=== PATIENT | female | born 1955 | race Caucasian/White ===

== ENCOUNTER 2023-05-20 15:03 | Emergency (ER) | payer MEDICARE, OTHER, SELFPAY ==
[2023-05-20] VITALS (15 sets, daily range): BP systolic 138–171; BP diastolic 72–98; PULSE 55–71; RESP 16–22; TEMP 36.6; O2SAT 95–99; BMI 23.6
--- NOTE | 2023-05-20 15:22 | ECG_ITS ---
[facility] Test Date: 2023-05-20 Pat Name: ANGEL PAGE Department: Room: - Gender: Female Sheet Manager: : 1955 Requested By: Order Number: [id number] Reading MD: GERDA BLACKMAN Measurements Intervals [place] Rate: 59 P: 58 MA: 152 QRS: 39 QRSD: 84 T: 49 QT: 400 QTc: 399 Interpretive Statements 1100 Sinus bradycardia 2420 RSR (QR) in lead V1/V2, consistent with right ventricular conduction delay 9130 borderline ECG Compared to ECG 03/31/2019 00:52:33 No significant changes Electronically Signed On 05-20-2023 23:29:12 EST by GERDA BLACKMAN
--- NOTE | 2023-05-20 15:23 | ED.CHESTPAI1 ---
HPI - Chest Pain General Chief Complaint: Chest Pain Stated Complaint: Chest Pain Time Seen by Provider: 05/20/23 15:16 Source: patient Mode of arrival: walk-in Limitations: no limitations History of Present Illness HPI narrative: Patient is a 67-year-old female who presents to the emergency department for chest pain over the last 2 months. She states in the last week it has become more constant and intense. She saw her doctor at the beginning of April and states she was started on blood pressure medications. She does not take any medications for cholesterol, diabetes, blood thinners. She has no history of cardiac disease that she is aware of. No previous stents. She states she had a stress test 30 years ago for palpitations which was normal. She states her PCP ordered an EKG in the office which was normal. She states she has an appointment tomorrow but figured she should come to the ER today. She has had no fevers, chills, cough, congestion, hemoptysis, leg swelling. Risk Factors Coronary artery disease risk factors: hypertension Related Data Home Medications Medication Instructions Recorded Confirmed ipratropium bromide 42 mcg (0.06 2 spray intranasal DAILY PRN 05/20/23 05/20/23 %) nasal spray allergy symptoms metoprolol succinate 25 mg 25 mg PO DAILY 05/20/23 05/20/23 tablet,extended release 24 hr valacyclovir 500 mg tablet 500 mg PO DAILY 05/20/23 05/20/23 valsartan 80 mg tablet 80 mg PO DAILY 05/20/23 05/20/23 Allergies Allergy/AdvReac Type Severity Reaction Status Date / Time No Known Drug Allergies Allergy Verified 05/20/23 15:16 Review of Systems ROS Constitutional Denies: fever or chills Ears, nose, mouth, and throat Denies: throat pain or nasal congestion Cardiovascular Reports: chest pain Respiratory Denies: shortness of breath or cough Gastrointestinal Denies: nausea or vomiting Musculoskeletal Denies: back pain Integumentary/Breast Denies: rash Neurological Denies: headache Hematologic/Lymphatic Denies: easy bruising or easy bleeding PFSH PFSH Social History Smoking status: Never smoker Exam Narrative Exam Narrative: Gen.: Awake, alert, in no distress Head: Normocephalic, atraumatic ENT: Moist mucous membranes Respiratory: No respiratory distress, lungs clear bilaterally Cardio: Regular rate and rhythm Extremities: Moves extremities equally, no pedal edema Psych: Normal mood and affect Neuro: No focal neuro deficit Skin: Warm, dry, intact Constitutional Vital Signs, click to edit/add: Last Vital Signs Temp 98 F 05/20/23 15:13 Pulse 71 05/20/23 16:10 Resp 18 05/20/23 16:10 BP 138/87 05/20/23 16:00 Pulse Ox 95 05/20/23 16:10 O2 Del Method Room Air 05/20/23 15:13 Course Vital Signs Vital signs: Vital Signs Temperature 98 F 05/20/23 15:13 Pulse Rate 63 05/20/23 15:13 Respiratory Rate 20 05/20/23 15:13 Blood Pressure 171/98 H 05/20/23 15:13 Pulse Oximetry 98 05/20/23 15:13 Oxygen Delivery Method Room Air 05/20/23 15:13 Temperature 98 F 05/20/23 15:13 Pulse Rate 71 05/20/23 16:10 Respiratory Rate 18 05/20/23 16:10 Blood Pressure 138/87 05/20/23 16:00 Pulse Oximetry 95 05/20/23 16:10 Oxygen Delivery Method Room Air 05/20/23 15:13 MDM - Chest Pain MDM Narrative Medical decision making narrative: Patient treated with aspirin in the ER, she declined pain medication and nausea medication. She has no acute EKG changes, she has no severe chest pain and no complaints of shortness of breath in the ER. Lab studies including troponin, D-dimer are within normal limits. Chest x-ray is unremarkable. She has had ongoing chest pain for 2 months with constant chest pain in the last week, she has an appointment tomorrow with her PCP. Heart score is a 3. She should return to the ER if symptoms change or worsen. She was Reexamined by attending physician prior to discharge. Medical Records Data Attestation: I reviewed the patient's medical records. Lab Data Attestation: I reviewed the patient's lab results. Labs: Lab Results 05/20/23 Range/Units 15:26 WBC 5.9 (4.0-11.0) 10^3/uL RBC 4.20 (4.20-5.40) 10^6/uL Hgb 13.2 (12.0-16.0) g/dL Hct 39.1 (36.0-48.0) % MCV 93.1 (81.0-99.0) fL MCH 31.4 (26.7-34.0) pg MCHC 33.8 (29.9-35.2) g/dL RDW 12.6 (11.0-15.0) % Plt Count 262 (150-450) 10^3/uL MPV 9.5 (9.5-13.5) fL Neut % (Auto) 42.3 L (43.0-75.0) % Lymph % (Auto) 42.5 (20.5-60.0) % [place] % (Auto) 11.6 (1.7-12.0) % Eos % (Auto) 1.9 (0.9-7.0) % Baso % (Auto) 1.5 (0.2-2.0) % Neut # (Auto) 2.5 (1.4-6.5) 10^3/uL Lymph # (Auto) 2.5 (1.2-3.8) 10^3/uL [place] # (Auto) 0.7 (0.3-0.8) 10^3/uL Eos # (Auto) 0.1 (0.0-0.7) 10^3/uL Baso # (Auto) 0.1 (0.0-0.1) 10^3/uL Abs Immat Gran (auto) 0.01 (0.00-0.03) 10^3/uL Imm/Tot Granulo (auto) 0.2 (0.0-0.5) % PT 10.7 (9.0-11.6) sec INR 1.01 APTT 26.9 (22.3-36.2) sec D-Dimer 0.36 (<=0.59) mg/L FEU Sodium 138 (136-145) mmol/L Potassium 4.2 (3.5-5.1) mmol/L Chloride 101 (98-107) mmol/L Carbon Dioxide 27.1 (21.0-32.0) mmol/L Anion Gap 14.1 BUN 12.0 (7.0-18.0) mg/dL Creatinine 0.89 (0.55-1.02) mg/dL Est GFR ( Amer) >60 (>=60) Est GFR (Non-Af Amer) >60 (>=60) BUN/Creatinine Ratio 13.5 Glucose 90 (74-106) mg/dL Calcium 9.5 (8.5-10.1) mg/dL Total Bilirubin 0.8 (0.2-1.0) mg/dL AST 21 (15-37) U/L ALT 23 (14-59) U/L Alkaline Phosphatase 72 (46-116) U/L Troponin I High Sens <4.0 L (4.0-51.3) pg/mL NT-Pro-B Natriuret Pep 342.0 (<=900.0) pg/mL Total Protein 7.5 (6.4-8.2) g/dL Albumin 4.0 (3.4-5.0) g/dL Globulin 3.5 g/dL Albumin/Globulin Ratio 1.1 Imaging Data Chest x-ray: Attestation: I have reviewed the pertinent imaging results. Radiologist's impression: ITS Impressions Chest X-Ray 05/20/23 16:05 IMPRESSION: No acute infiltrate or evidence of cardiac decompensation. Direct comparison with a previous study may be helpful in determining the chronicity is findings. Electronically authenticated by: TK GUSTAFSON Date: 05/20/2023 16:50 ECG Data Attestation: I personally reviewed and interpreted this ECG as follows: ([place] rhythm at a rate of 59, no acute ST elevation or ectopy. EKG reviewed by attending physician) Heart Score History: Slightly/Non-Suspicious ECG: Normal Age: >65 years Risk Factors: 1 or 2 Risk Factors Troponin: <Normal Limit Total Heart Score Recommendations & Risks:: 3 Discharge Plan Discharge Chief Complaint: Chest Pain Clinical Impression: Chest pain Patient Disposition: Home, Self-Care Time of Disposition Decision: 16:53 Condition: Good Prescriptions / Home Meds: No Action ipratropium bromide 42 mcg (0.06 %) spray,non-aerosol 2 spray INTRANASAL DAILY PRN (Reason: allergy symptoms) metoprolol succinate 25 mg tablet extended release 24 hr 25 mg PO DAILY valacyclovir 500 mg tablet 500 mg PO DAILY valsartan 80 mg tablet 80 mg PO DAILY Instructions: Chest Pain (ED) Stand Alone Forms: Portal Instructions Referrals: Physician,Non-Staff, MD [Primary Care Provider] - 1 week
[2023-05-20 15:36] LABS: Basophils Absolute Auto 0.1 10^3/uL (0.0-0.1); Basophils Percent Auto 1.5 % (0.2-2.0); Eosinophils Absolute Auto 0.1 10^3/uL (0.0-0.7); Eosinophils Percent Auto 1.9 % (0.9-7.0); Hematocrit 39.1 % (36.0-48.0); Hemoglobin 13.2 g/dL (12.0-16.0); Immature Granulocytes Abs Auto 0.01 10^3/uL (0.00-0.03); Immature Granulocytes Pct Auto 0.2 % (0.0-0.5); Lymphocytes Absolute Auto 2.5 10^3/uL (1.2-3.8); Lymphocytes Percent Auto 42.5 % (20.5-60.0); Mean Corpuscular HGB Conc 33.8 g/dL (29.9-35.2); Mean Corpuscular Hemoglobin 31.4 pg (26.7-34.0); Mean Corpuscular Volume 93.1 fL (81.0-99.0); Mean Platelet Volume 9.5 fL (9.5-13.5); Monocytes Absolute Auto 0.7 10^3/uL (0.3-0.8); Monocytes Percent Auto 11.6 % (1.7-12.0); Neutrophils Absolute Auto 2.5 10^3/uL (1.4-6.5); Neutrophils Percent Auto 42.3 % (43.0-75.0); Platelet Count 262 10^3/uL (150-450); Red Cell Distribution Width 12.6 % (11.0-15.0); White Blood Count 5.9 10^3/uL (4.0-11.0)
[2023-05-20] MEDS: ASPIRIN 81 MG TAB.CHEW 162 MG PO (15:36)
[2023-05-20 15:55] LABS: Alanine Aminotransferase 23 U/L (14-59); Albumin Globulin Ratio 1.1; Alkaline Phosphatase 72 U/L (46-116); Anion Gap 14.1; Aspartate Amino Transferase 21 U/L (15-37); BUN Creatinine Ratio 13.5; Bilirubin Total 0.8 mg/dL (0.2-1.0); Calcium 9.5 mg/dL (8.5-10.1); Carbon Dioxide 27.1 mmol/L (21.0-32.0); Chloride 101 mmol/L (98-107); Estimated GFR (African America >60 (>=60); Estimated GFR (Non-African Ame >60 (>=60); Globulin 3.5 g/dL; Glucose 90 mg/dL (74-106); Potassium 4.2 mmol/L (3.5-5.1); Sodium 138 mmol/L (136-145); Total Protein 7.5 g/dL (6.4-8.2)
[2023-05-20 16:01] LABS: Troponin I High Sensitivity <4.0 pg/mL (4.0-51.3)
[2023-05-20 16:02] LABS: D Dimer 0.36 mg/L FEU (<=0.59); INR 1.01; Partial Thromboplastin Time 26.9 sec (22.3-36.2); Prothrombin Time 10.7 sec (9.0-11.6)
--- NOTE | 2023-05-20 16:05 | XR_ITS ---
The [address] [address] Patient Name: ANGEL PAGE MRN: [id number] date: 1955 Sex: F Assigned Patient Location: ER Current Patient Location: ER Accession/Order Number: [id number] Exam Date: 05/20/2023 16:10 Report Date: 05/20/2023 16:50 At the request of: NICOLÁS GONZALEZ Procedure: XR chest 1V EXAM: XR chest 1V at 1607 hours HISTORY: Chest pain COMPARISON: None. TECHNIQUE: AP upright portable chest x-ray FINDINGS: The heart is not enlarged and the vasculature is not distended. No acute infiltrate, effusion or pneumothorax is identified. A calcified perihilar lymph node is noted on the right. Scoliosis the spine is present. XR/XR chest 1V IMPRESSION: No acute infiltrate or evidence of cardiac decompensation. Direct comparison with a previous study may be helpful in determining the chronicity is findings. Electronically authenticated by: TK GUSTAFSON Date: 05/20/2023 16:50
== END 2023-05-20 17:08 | disposition home or self-care (01) ==
PROVIDERS: Physician Assistant; Emergency Provider Emergency Medicine; Family Provider Family Medicine
DX: R07.9 Chest pain, unspecified (principal)
CPT/HCPCS: 36415; 71045; 80053; 83880; 84484; 85025; 85378; 85610; 85730; 93005; 99285